=== PATIENT | male | born 1965 | race African-American/Black ===

== ENCOUNTER 2020-02-19 09:35 | Inpatient (IN) | payer BC ==
[2020-02-19 11:14] VITALS: BMI 22.6
[2020-02-19] MEDS ORDERED: ONDANSETRON *ODT* 4 MG TABLET SL PRN (12:05)
[2020-02-19] MEDS ORDERED: MAGNESIUM CITRATE 300 ML BOTTLE PO PRN (12:05)
[2020-02-19] MEDS ORDERED: chlordiazePOXIDE HCL 25 MG CAPSULE PO PRN (12:05)
[2020-02-19] MEDS ORDERED: MENTHOL/PHENOL 1 EACH UD MM PRN (12:05)
[2020-02-19] MEDS ORDERED: MAGNESIUM HYDROX 2400MG/30ML ORAL SUSPENSION 30 ML CUP PO PRN (12:05)
[2020-02-19] MEDS ORDERED: IBUPROFEN 400 MG TABLET (FP) PO PRN (12:05)
[2020-02-19] MEDS ORDERED: BISMUTH SUBSALICYLATE 262 MG/15 ML BTL PO PRN (12:05)
[2020-02-19] MEDS ORDERED: MAG HYDROX/AL HYDROX/SIMETH 30 ML UNIT-DOSE CUP PO PRN (12:05)
[2020-02-19] MEDS ORDERED: NICOTINE POLACRILEX 2 MG GUM BUC PRN (12:05)
[2020-02-19] MEDS ORDERED: ACETAMINOPHEN 325 MG TABLET (FP) PO PRN ×2 (12:05)
[2020-02-19] MEDS ORDERED: METHOCARBAMOL 500 MG TABLET PO PRN (12:05)
[2020-02-19] MEDS: PRENATAL VITAMINS W/ FOLIC ACID TABLET (FP) PO SCH (13:11)
[2020-02-19] MEDS: chlordiazePOXIDE HCL 25 MG CAPSULE PO SCH ×3 (13:11→22:14)
[2020-02-19] MEDS: hydrOXYzine PAMOATE 25 MG CAPSULE (FP) PO SCH ×3 (13:13→23:35)
[2020-02-19 17:09] LABS: HEMATOCRIT 37.4 % (35.4-49); HEMOGLOBIN 12.5 GM/dL (11.7-16.9); MCH 32.9 pg (25.7-33.7); MCHC 33.4 g/dl (32.0-35.9); MEAN CELL VOLUME 98.4 fl (80-96); MEAN PLT VOLUME 8.6 fl (7.5-11.1); PLATELET COUNT 260 K/MM3 (134-434); RDW 14.1 % (11.9-15.9); WHITE BLOOD COUNT 6.8 K/mm3 (4.0-10.0)
[2020-02-19 17:15] LABS: ALBUMIN 3.6 g/dl (3.4-5.0); CALCIUM 8.9 mg/dL (8.5-10.1)
[2020-02-19 17:16] LABS: BLOOD UREA NITROGEN 19.2 mg/dL (7-18)
[2020-02-19 17:20] LABS: BILIRUBIN,TOTAL 0.3 mg/dL (0.2-1)
[2020-02-19] MEDS ORDERED: MASKS NR ONE (18:25)
[2020-02-19] MEDS ORDERED: THIAMINE HCL 100 MG TABLET (FP) PO SCH (22:00)
[2020-02-19] MEDS ORDERED: MELATONIN 5 MG TABLETS PO SCH (22:00)
[2020-02-20] MEDS: chlordiazePOXIDE HCL 25 MG CAPSULE PO SCH ×2 (05:53→10:55)
[2020-02-20] MEDS: hydrOXYzine PAMOATE 25 MG CAPSULE (FP) PO SCH ×3 (05:53→14:58)
[2020-02-20] MEDS: PRENATAL VITAMINS W/ FOLIC ACID TABLET (FP) PO SCH (10:57)
[2020-02-20] MEDS ORDERED: PANTOPRAZOLE 40 MG TABLET PO SCH (13:15)
[2020-02-20 15:23] VITALS: BP 138/76; PULSE 83; TEMP 96.1
[2020-02-21] MEDS ORDERED: chlordiazePOXIDE HCL 25 MG CAPSULE PO SCH (05:00)
[2020-02-22] MEDS ORDERED: chlordiazePOXIDE HCL 10 MG CAPSULE PO PRN
[2020-02-22] MEDS ORDERED: chlordiazePOXIDE HCL 10 MG CAPSULE PO SCH (05:00)
[2020-02-23] MEDS ORDERED: chlordiazePOXIDE HCL 10 MG CAPSULE PO SCH (05:00)
[2020-02-24] MEDS ORDERED: chlordiazePOXIDE HCL 10 MG CAPSULE PO ONE (05:00)
== END 2020-02-20 17:15 | disposition left against medical advice (07) | DRG 770 ==
LOC: YASAS 09:35 → Y3N 11:48
PROVIDERS: ADMIT Allergy & Immunology; ATTEND Allergy & Immunology
PROC: HZ2ZZZZ Detoxification Services for Substance Abuse Treatment (ICD-10-PCS; principal; 2020-02-19)
DX: F10.230 Alcohol dependence with withdrawal, uncomplicated (principal); F14.20 Cocaine dependence, uncomplicated; F17.210 Nicotine dependence, cigarettes, uncomplicated; F32.9 Major depressive disorder, single episode, unspecified; I10 Essential (primary) hypertension; E11.9 Type 2 diabetes mellitus without complications; K21.9 Gastro-esophageal reflux disease without esophagitis; R01.1 Cardiac murmur, unspecified; Z88.5 Allergy status to narcotic agent; Z91.013 Allergy to seafood
CPT/HCPCS: 36415; 80053; 85027; 86780; 93005; 93010; C9803; U0003

== ENCOUNTER 2020-05-03 15:21 | Inpatient (IN) | payer BC ==
[2020-05-03 18:58] VITALS: BMI 24.6
[2020-05-03] MEDS ORDERED: MAG HYDROX/AL HYDROX/SIMETH 30 ML UNIT-DOSE CUP PO PRN (20:15)
[2020-05-03] MEDS ORDERED: MAGNESIUM CITRATE 300 ML BOTTLE PO PRN (20:15)
[2020-05-03] MEDS ORDERED: IBUPROFEN 400 MG TABLET (FP) PO PRN (20:15)
[2020-05-03] MEDS ORDERED: hydrOXYzine PAMOATE 25 MG CAPSULE (FP) PO PRN (20:15)
[2020-05-03] MEDS ORDERED: ACETAMINOPHEN 325 MG TABLET (FP) PO PRN (20:15)
[2020-05-03] MEDS ORDERED: P-EPHED 60MG/TRIPROLIDI 2.5MG TABLET PO PRN (20:15)
[2020-05-03] MEDS ORDERED: MAGNESIUM HYDROX 2400MG/30ML ORAL SUSPENSION 30 ML CUP PO PRN (20:15)
[2020-05-03] MEDS ORDERED: guaiFENesin 200 MG/10 ML 10 ML UNIT-DOSE CUPS PO PRN (20:15)
[2020-05-03] MEDS ORDERED: NICOTINE POLACRILEX 2 MG GUM BC PRN (20:15)
[2020-05-03] MEDS ORDERED: LOPERAMIDE HCL 2 MG CAPSULE PO PRN (20:15)
[2020-05-03] MEDS ORDERED: cloNIDine HCL 0.1 MG TABLET PO PRN (20:17)
[2020-05-03] MEDS: MELATONIN 5 MG TABLETS PO SCH (23:53)
[2020-05-03] MEDS: THIAMINE HCL 100 MG TABLET (FP) PO SCH (23:53)
[2020-05-04] MEDS: NICOTINE 14 MG/24 HOURS TOPICAL PATCH TD SCH (09:49)
[2020-05-04] MEDS: PRENATAL VITAMINS W/ FOLIC ACID TABLET (FP) PO SCH (09:49)
[2020-05-04 12:03] LABS: HEMATOCRIT 38.3 % (35.4-49); HEMOGLOBIN 12.9 GM/dL (11.7-16.9); MCH 32.3 pg (25.7-33.7); MCHC 33.7 g/dl (32.0-35.9); MEAN CELL VOLUME 95.9 fl (80-96); MEAN PLT VOLUME 8.6 fl (7.5-11.1); PLATELET COUNT 271 K/MM3 (134-434); RBC 3.99 M/mm3 (4.00-5.60); RDW 13.8 % (11.9-15.9); WHITE BLOOD COUNT 6.3 K/mm3 (4.0-10.0)
[2020-05-04 12:16] LABS: BLOOD UREA NITROGEN 15.3 mg/dL (7-18); CALCIUM 9.5 mg/dL (8.5-10.1)
[2020-05-04 12:17] LABS: ALBUMIN 3.3 g/dl (3.4-5.0)
[2020-05-04 12:20] LABS: CREATININE 0.8 mg/dL (0.55-1.3)
[2020-05-04 12:21] LABS: BILIRUBIN,TOTAL 0.3 mg/dL (0.2-1); TOT PROT 6.5 g/dl (6.4-8.2)
[2020-05-04] MEDS ORDERED: MASKS NR ONE (17:25)
[2020-05-04] MEDS: MELATONIN 5 MG TABLETS PO SCH (21:52)
[2020-05-04] MEDS: THIAMINE HCL 100 MG TABLET (FP) PO SCH (21:52)
[2020-05-05] MEDS: PRENATAL VITAMINS W/ FOLIC ACID TABLET (FP) PO SCH (10:03)
[2020-05-05] MEDS: NICOTINE 14 MG/24 HOURS TOPICAL PATCH TD SCH (10:04)
[2020-05-05] MEDS: THIAMINE HCL 100 MG TABLET (FP) PO SCH (21:11)
[2020-05-05] MEDS: MELATONIN 5 MG TABLETS PO SCH (21:11)
[2020-05-06] MEDS ORDERED: COLLOIDAL OATMEAL 1 BAR EACH TP PRN (08:39)
[2020-05-06] MEDS ORDERED: AMMONIUM LACTATE 12% LOTION 225 GM BOTTLE TP PRN (08:40)
[2020-05-06] MEDS: PRENATAL VITAMINS W/ FOLIC ACID TABLET (FP) PO SCH (09:44)
[2020-05-06] MEDS: NICOTINE 14 MG/24 HOURS TOPICAL PATCH TD SCH (10:36)
[2020-05-06 12:13] LABS: URINE APPEARANCE CLEAR; URINE BILIRUBIN NEGATIVE (NEGATIVE); URINE COLOR YELLOW; URINE GLUCOSE (UA) NEGATIVE (NEGATIVE); URINE KETONE NEGATIVE (NEGATIVE); URINE LEUK ESTERASE NEGATIVE (NEGATIVE); URINE NITRITE NEGATIVE (NEGATIVE); URINE PROTEIN NEGATIVE (NEGATIVE); URINE UROBILINOGEN 0.2 mg/dL (0.2-1.0)
[2020-05-06] MEDS: THIAMINE HCL 100 MG TABLET (FP) PO SCH (22:45)
[2020-05-06] MEDS: MELATONIN 5 MG TABLETS PO SCH (22:45)
[2020-05-07] MEDS: PRENATAL VITAMINS W/ FOLIC ACID TABLET (FP) PO SCH (10:02)
[2020-05-07] MEDS: NICOTINE 14 MG/24 HOURS TOPICAL PATCH TD SCH (10:02)
[2020-05-07] MEDS: THIAMINE HCL 100 MG TABLET (FP) PO SCH (21:44)
[2020-05-07] MEDS: MELATONIN 5 MG TABLETS PO SCH (21:44)
[2020-05-08] MEDS: PRENATAL VITAMINS W/ FOLIC ACID TABLET (FP) PO SCH (09:37)
[2020-05-08] MEDS: NICOTINE 14 MG/24 HOURS TOPICAL PATCH TD SCH (09:37)
[2020-05-08] MEDS: MELATONIN 5 MG TABLETS PO SCH (21:57)
[2020-05-08] MEDS: THIAMINE HCL 100 MG TABLET (FP) PO SCH (21:57)
[2020-05-09] MEDS: PRENATAL VITAMINS W/ FOLIC ACID TABLET (FP) PO SCH (09:35)
[2020-05-09] MEDS: NICOTINE 14 MG/24 HOURS TOPICAL PATCH TD SCH (09:35)
[2020-05-09] MEDS: MELATONIN 5 MG TABLETS PO SCH (21:47)
[2020-05-09] MEDS: THIAMINE HCL 100 MG TABLET (FP) PO SCH (21:47)
[2020-05-10] MEDS: PRENATAL VITAMINS W/ FOLIC ACID TABLET (FP) PO SCH (09:59)
[2020-05-10] MEDS: NICOTINE 14 MG/24 HOURS TOPICAL PATCH TD SCH (09:59)
[2020-05-10] MEDS: MELATONIN 5 MG TABLETS PO SCH (23:02)
[2020-05-10] MEDS: THIAMINE HCL 100 MG TABLET (FP) PO SCH (23:03)
[2020-05-11] MEDS: NICOTINE 14 MG/24 HOURS TOPICAL PATCH TD SCH (10:14)
[2020-05-11] MEDS: PRENATAL VITAMINS W/ FOLIC ACID TABLET (FP) PO SCH (10:14)
[2020-05-11] MEDS: MELATONIN 5 MG TABLETS PO SCH (21:44)
[2020-05-11] MEDS: THIAMINE HCL 100 MG TABLET (FP) PO SCH (21:44)
[2020-05-12] MEDS: NICOTINE 14 MG/24 HOURS TOPICAL PATCH TD SCH (09:52)
[2020-05-12] MEDS: PRENATAL VITAMINS W/ FOLIC ACID TABLET (FP) PO SCH (09:52)
[2020-05-12] MEDS: MELATONIN 5 MG TABLETS PO SCH (21:54)
[2020-05-12] MEDS: THIAMINE HCL 100 MG TABLET (FP) PO SCH (21:54)
[2020-05-13] MEDS: PRENATAL VITAMINS W/ FOLIC ACID TABLET (FP) PO SCH (09:37)
[2020-05-13] MEDS: NICOTINE 14 MG/24 HOURS TOPICAL PATCH TD SCH (10:15)
[2020-05-13] MEDS: THIAMINE HCL 100 MG TABLET (FP) PO SCH (21:37)
[2020-05-13] MEDS: MELATONIN 5 MG TABLETS PO SCH (21:37)
[2020-05-14] MEDS: PRENATAL VITAMINS W/ FOLIC ACID TABLET (FP) PO SCH (09:41)
[2020-05-14] MEDS: NICOTINE 14 MG/24 HOURS TOPICAL PATCH TD SCH (09:42)
[2020-05-14] MEDS: THIAMINE HCL 100 MG TABLET (FP) PO SCH (21:43)
[2020-05-14] MEDS: MELATONIN 5 MG TABLETS PO SCH (21:43)
[2020-05-15] MEDS: PRENATAL VITAMINS W/ FOLIC ACID TABLET (FP) PO SCH (10:03)
[2020-05-15] MEDS: NICOTINE 14 MG/24 HOURS TOPICAL PATCH TD SCH (10:03)
[2020-05-15] MEDS: THIAMINE HCL 100 MG TABLET (FP) PO SCH (21:36)
[2020-05-15] MEDS: MELATONIN 5 MG TABLETS PO SCH (21:36)
[2020-05-16] MEDS: PRENATAL VITAMINS W/ FOLIC ACID TABLET (FP) PO SCH (09:34)
[2020-05-16] MEDS: NICOTINE 14 MG/24 HOURS TOPICAL PATCH TD SCH (09:34)
[2020-05-16] MEDS: THIAMINE HCL 100 MG TABLET (FP) PO SCH (22:17)
[2020-05-16] MEDS: MELATONIN 5 MG TABLETS PO SCH (22:17)
[2020-05-17 07:34] VITALS: BP 139/97; PULSE 49; TEMP 97.2
[2020-05-17] MEDS: PRENATAL VITAMINS W/ FOLIC ACID TABLET (FP) PO SCH (09:49)
[2020-05-17] MEDS: NICOTINE 14 MG/24 HOURS TOPICAL PATCH TD SCH (09:49)
== END 2020-05-17 11:47 | disposition home or self-care (01) | DRG 772 ==
LOC: YASAS 15:21 → Y3W 23:08
PROVIDERS: ADMIT Allergy & Immunology; ATTEND Allergy & Immunology
PROC: HZ42ZZZ Group Counseling for Substance Abuse Treatment, Cognitive-Behavioral (ICD-10-PCS; principal; 2020-05-03)
DX: F10.20 Alcohol dependence, uncomplicated (principal); F14.20 Cocaine dependence, uncomplicated; F17.210 Nicotine dependence, cigarettes, uncomplicated; I10 Essential (primary) hypertension; E11.9 Type 2 diabetes mellitus without complications; L30.9 Dermatitis, unspecified; M16.11 Unilateral primary osteoarthritis, right hip; Z88.5 Allergy status to narcotic agent; Z91.013 Allergy to seafood; Z56.0 Unemployment, unspecified; Z59.0 Homelessness
CPT/HCPCS: 36415; 73502-TC-RT-FY; 80053; 81003; 85027; 86780; C9803; U0003

== ENCOUNTER 2021-01-21 12:36 | Inpatient (IN) | payer BC ==
[2021-01-21] MEDS ORDERED: MAGNESIUM HYDROX 2400MG/30ML ORAL SUSPENSION 30 ML CUP PO PRN (13:30)
[2021-01-21] MEDS ORDERED: BISMUTH SUBSALICYLATE 524 MG/30 ML PO PRN (13:30)
[2021-01-21] MEDS ORDERED: MAG HYDROX/AL HYDROX/SIMETH 30 ML UNIT-DOSE CUP PO PRN (13:30)
[2021-01-21] MEDS ORDERED: ONDANSETRON *ODT* 4 MG TABLET SL PRN (13:30)
[2021-01-21] MEDS ORDERED: ACETAMINOPHEN 325 MG TABLET (FP) PO PRN ×2 (13:30)
[2021-01-21] MEDS ORDERED: IBUPROFEN 400 MG TABLET (FP) PO PRN (13:30)
[2021-01-21] MEDS ORDERED: MENTHOL/PHENOL 1 EACH UD MM PRN (13:30)
[2021-01-21] MEDS ORDERED: NICOTINE 10 MG CARTRIDGE (INHALER) IH PRN (13:30)
[2021-01-21] MEDS ORDERED: MAGNESIUM CITRATE 300 ML BOTTLE PO PRN (13:30)
[2021-01-21 13:52] VITALS: BMI 21.9
[2021-01-21] MEDS: hydrOXYzine PAMOATE 25 MG CAPSULE (FP) PO SCH ×3 (15:56→22:36)
[2021-01-21] MEDS: PRENATAL VITAMINS W/ FOLIC ACID TABLET (FP) PO SCH (15:58)
[2021-01-21] MEDS: MELATONIN 5 MG TABLETS PO SCH (22:36)
[2021-01-21] MEDS: THIAMINE HCL 100 MG TABLET (FP) PO SCH (22:36)
[2021-01-22] MEDS: hydrOXYzine PAMOATE 25 MG CAPSULE (FP) PO SCH ×5 (07:09→22:37)
[2021-01-22] MEDS ORDERED: LORazepam 0.5 MG TABLET PO PRN (09:51)
[2021-01-22] MEDS: LORazepam 1 MG TABLET PO SCH ×3 (10:57→22:37)
[2021-01-22] MEDS: PRENATAL VITAMINS W/ FOLIC ACID TABLET (FP) PO SCH (10:57)
[2021-01-22 13:14] LABS: HEMATOCRIT 36.7 % (35.4-49); HEMOGLOBIN 12.5 GM/dL (11.7-16.9); MCH 32.9 pg (25.7-33.7); MEAN CELL VOLUME 96.6 fl (80-96); MEAN PLT VOLUME 7.8 fl (7.5-11.1); PLATELET COUNT 288 10^3/uL (134-434); RDW 14.7 % (11.9-15.9); WHITE BLOOD COUNT 4.9 K/mm3 (4.0-10.0)
[2021-01-22 13:42] LABS: ALBUMIN 3.1 g/dl (3.4-5.0)
[2021-01-22 13:43] LABS: BLOOD UREA NITROGEN 11.2 mg/dL (7-18)
[2021-01-22 13:46] LABS: CREATININE 0.8 mg/dL (0.55-1.3)
[2021-01-22 13:47] LABS: BILIRUBIN,TOTAL 0.4 mg/dL (0.2-1); TOT PROT 6.3 g/dl (6.4-8.2)
[2021-01-22 13:50] LABS: CALCIUM 8.5 mg/dL (8.5-10.1)
[2021-01-22] MEDS: METHOCARBAMOL 500 MG TABLET PO PRN (22:37)
[2021-01-22] MEDS: THIAMINE HCL 100 MG TABLET (FP) PO SCH (22:37)
[2021-01-22] MEDS: MELATONIN 5 MG TABLETS PO SCH (22:39)
[2021-01-23] MEDS ORDERED: LORazepam 0.5 MG TABLET PO PRN
[2021-01-23] MEDS: hydrOXYzine PAMOATE 25 MG CAPSULE (FP) PO SCH ×5 (05:21→22:46)
[2021-01-23] MEDS: LORazepam 0.5 MG TABLET PO SCH ×4 (05:21→22:46)
[2021-01-23] MEDS: PRENATAL VITAMINS W/ FOLIC ACID TABLET (FP) PO SCH (10:31)
[2021-01-23] MEDS: THIAMINE HCL 100 MG TABLET (FP) PO SCH (22:46)
[2021-01-23] MEDS: MELATONIN 5 MG TABLETS PO SCH (23:17)
[2021-01-24] MEDS ORDERED: LORazepam 0.5 MG TABLET PO ONE (05:00)
[2021-01-24] MEDS: hydrOXYzine PAMOATE 25 MG CAPSULE (FP) PO SCH ×5 (06:52→22:56)
[2021-01-24] MEDS: PRENATAL VITAMINS W/ FOLIC ACID TABLET (FP) PO SCH (10:14)
[2021-01-24] MEDS: LORazepam 0.5 MG TABLET PO SCH ×2 (10:15→22:55)
[2021-01-24] MEDS: METHOCARBAMOL 500 MG TABLET PO PRN (18:34)
[2021-01-24] MEDS: MELATONIN 5 MG TABLETS PO SCH (22:56)
[2021-01-24] MEDS: THIAMINE HCL 100 MG TABLET (FP) PO SCH (22:56)
[2021-01-25] MEDS ORDERED: LORazepam 0.5 MG TABLET PO ONE (06:00)
[2021-01-25] MEDS: hydrOXYzine PAMOATE 25 MG CAPSULE (FP) PO SCH (06:41)
[2021-01-25 09:39] VITALS: BP 151/79; PULSE 75; TEMP 98.6
== END 2021-01-25 12:46 | disposition home or self-care (01) | DRG 774 ==
LOC: YASAS 12:36 → Y3N 14:25
PROVIDERS: ADMIT Allergy & Immunology; ATTEND Allergy & Immunology
PROC: HZ2ZZZZ Detoxification Services for Substance Abuse Treatment (ICD-10-PCS; principal; 2021-01-21)
DX: F10.230 Alcohol dependence with withdrawal, uncomplicated (principal); F14.20 Cocaine dependence, uncomplicated; F17.210 Nicotine dependence, cigarettes, uncomplicated; I10 Essential (primary) hypertension; E78.5 Hyperlipidemia, unspecified; K21.9 Gastro-esophageal reflux disease without esophagitis; E11.65 Type 2 diabetes mellitus with hyperglycemia; Z88.6 Allergy status to analgesic agent; Z91.013 Allergy to seafood; Z59.00 Homelessness unspecified
CPT/HCPCS: 36415; 80053; 82962; 83036; 85027; 86780; C9803; U0003; U0005

== ENCOUNTER 2021-04-07 14:25 | Inpatient (IN) | payer BC ==
[2021-04-07] MEDS ORDERED: ONDANSETRON *ODT* 4 MG TABLET SL PRN (15:32)
[2021-04-07] MEDS ORDERED: MENTHOL/PHENOL 1 EACH UD MM PRN (15:32)
[2021-04-07] MEDS ORDERED: chlordiazePOXIDE HCL 25 MG CAPSULE PO PRN (15:32)
[2021-04-07] MEDS ORDERED: ACETAMINOPHEN 325 MG TABLET (FP) PO PRN ×2 (15:32)
[2021-04-07] MEDS ORDERED: NICOTINE 10 MG CARTRIDGE (INHALER) IH PRN (15:32)
[2021-04-07] MEDS ORDERED: MAGNESIUM CITRATE 300 ML BOTTLE PO PRN (15:32)
[2021-04-07] MEDS ORDERED: IBUPROFEN 400 MG TABLET (FP) PO PRN (15:32)
[2021-04-07] MEDS ORDERED: MAG HYDROX/AL HYDROX/SIMETH 30 ML UNIT-DOSE CUP PO PRN (15:32)
[2021-04-07] MEDS ORDERED: BISMUTH SUBSALICYLATE 524 MG/30 ML PO PRN (15:32)
[2021-04-07] MEDS ORDERED: MAGNESIUM HYDROX 2400MG/30ML ORAL SUSPENSION 30 ML CUP PO PRN (15:32)
[2021-04-07] MEDS ORDERED: METHOCARBAMOL 500 MG TABLET PO PRN (15:32)
[2021-04-07] MEDS ORDERED: LOPERAMIDE HCL 2 MG CAPSULE PO PRN (15:32)
[2021-04-07 15:48] VITALS: BMI 26.6
[2021-04-08] MEDS: chlordiazePOXIDE HCL 25 MG CAPSULE PO SCH ×6 (00:46→23:12)
[2021-04-08] MEDS: NICOTINE 14 MG/24 HOURS TOPICAL PATCH TD SCH ×2 (00:47→11:11)
[2021-04-08] MEDS: PRENATAL VITAMINS W/ FOLIC ACID TABLET (FP) PO SCH ×2 (00:47→10:29)
[2021-04-08] MEDS: MELATONIN 5 MG TABLETS PO SCH ×2 (01:56→23:12)
[2021-04-08] MEDS: hydrOXYzine PAMOATE 25 MG CAPSULE (FP) PO SCH ×6 (01:57→23:12)
[2021-04-08] MEDS: THIAMINE HCL 100 MG TABLET (FP) PO SCH ×2 (01:57→23:12)
[2021-04-08 12:31] LABS: HEMATOCRIT 35.1 % (35.4-49); HEMOGLOBIN 11.6 GM/dL (11.7-16.9); MCH 32.2 pg (25.7-33.7); MEAN CELL VOLUME 97.6 fl (80-96); MEAN PLT VOLUME 8.3 fl (7.5-11.1); PLATELET COUNT 243 10^3/uL (134-434); RDW 14.8 % (11.9-15.9); WHITE BLOOD COUNT 5.2 K/mm3 (4.0-10.0)
[2021-04-08 12:44] LABS: ALBUMIN 3.1 g/dl (3.4-5.0); BLOOD UREA NITROGEN 20.2 mg/dL (7-18); CALCIUM 7.8 mg/dL (8.5-10.1)
[2021-04-08 12:49] LABS: BILIRUBIN,TOTAL 0.4 mg/dL (0.2-1)
[2021-04-08 13:37] LABS: HIV INTERPRETATION NEGATIVE (NEGATIVE)
[2021-04-09] MEDS: hydrOXYzine PAMOATE 25 MG CAPSULE (FP) PO SCH ×5 (06:01→23:12)
[2021-04-09] MEDS: chlordiazePOXIDE HCL 25 MG CAPSULE PO SCH ×4 (06:01→23:12)
[2021-04-09] MEDS: PRENATAL VITAMINS W/ FOLIC ACID TABLET (FP) PO SCH (10:37)
[2021-04-09] MEDS: NICOTINE 14 MG/24 HOURS TOPICAL PATCH TD SCH (10:39)
[2021-04-09 16:11] LABS: SARS-CoV-2 NAA Not Detected (Not Detected)
[2021-04-09] MEDS: MELATONIN 5 MG TABLETS PO SCH (23:12)
[2021-04-09] MEDS: THIAMINE HCL 100 MG TABLET (FP) PO SCH (23:12)
[2021-04-10] MEDS ORDERED: chlordiazePOXIDE HCL 10 MG CAPSULE PO PRN
[2021-04-10] MEDS: chlordiazePOXIDE HCL 10 MG CAPSULE PO SCH ×2 (06:49→10:50)
[2021-04-10] MEDS: hydrOXYzine PAMOATE 25 MG CAPSULE (FP) PO SCH ×3 (06:49→13:58)
[2021-04-10] MEDS: PRENATAL VITAMINS W/ FOLIC ACID TABLET (FP) PO SCH (10:49)
[2021-04-10] MEDS: NICOTINE 14 MG/24 HOURS TOPICAL PATCH TD SCH (10:50)
[2021-04-10 13:08] VITALS: BP 126/78; PULSE 91; TEMP 98.6
[2021-04-11] MEDS ORDERED: chlordiazePOXIDE HCL 10 MG CAPSULE PO SCH (05:00)
[2021-04-12] MEDS ORDERED: chlordiazePOXIDE HCL 10 MG CAPSULE PO ONE (05:00)
== END 2021-04-10 16:27 | disposition left against medical advice (07) | DRG 770 ==
LOC: YASAS 14:25 → Y3N 22:42
PROVIDERS: ADMIT Allergy & Immunology; ATTEND Allergy & Immunology
PROC: HZ2ZZZZ Detoxification Services for Substance Abuse Treatment (ICD-10-PCS; principal; 2021-04-07)
DX: F10.230 Alcohol dependence with withdrawal, uncomplicated (principal); F14.20 Cocaine dependence, uncomplicated; F12.20 Cannabis dependence, uncomplicated; F17.210 Nicotine dependence, cigarettes, uncomplicated; I10 Essential (primary) hypertension; E78.5 Hyperlipidemia, unspecified; E11.9 Type 2 diabetes mellitus without complications; L30.9 Dermatitis, unspecified; Z88.5 Allergy status to narcotic agent; Z91.013 Allergy to seafood; Z59.00 Homelessness unspecified
CPT/HCPCS: 36415; 80053; 85027; 86780; 87389; 87811; C9803; U0003; U0005

== ENCOUNTER 2021-08-08 11:48 | Inpatient (IN) | payer BC ==
[2021-08-08 12:13] VITALS: BMI 23.3
[2021-08-08] MEDS ORDERED: BISMUTH SUBSALICYLATE 262 MG/15 ML BTL PO PRN (12:13)
[2021-08-08] MEDS ORDERED: BENZOCAINE/MENTHOL (CHLORASEPTIC ) LOZENGE MM PRN (12:13)
[2021-08-08] MEDS ORDERED: MAGNESIUM CITRATE 300 ML BOTTLE PO PRN (12:13)
[2021-08-08] MEDS ORDERED: chlordiazePOXIDE HCL 25 MG CAPSULE PO PRN (12:13)
[2021-08-08] MEDS ORDERED: NICOTINE 10 MG CARTRIDGE (INHALER) IH PRN (12:13)
[2021-08-08] MEDS ORDERED: ONDANSETRON *ODT* 4 MG TABLET SL PRN (12:13)
[2021-08-08] MEDS ORDERED: DICYCLOMINE HCL 10 MG CAPSULE PO PRN (12:13)
[2021-08-08] MEDS ORDERED: ACETAMINOPHEN 325 MG TABLET (FP) PO PRN ×2 (12:13)
[2021-08-08] MEDS ORDERED: MAGNESIUM HYDROX 2400MG/30ML ORAL SUSPENSION 30 ML CUP PO PRN (12:13)
[2021-08-08] MEDS ORDERED: IBUPROFEN 600 MG TABLET (FP) PO PRN (12:13)
[2021-08-08] MEDS ORDERED: LOPERAMIDE HCL 2 MG CAPSULE PO PRN (12:13)
[2021-08-08] MEDS ORDERED: IBUPROFEN 400 MG TABLET (FP) PO PRN (12:13)
[2021-08-08] MEDS ORDERED: METHOCARBAMOL 500 MG TABLET PO PRN (12:13)
[2021-08-08] MEDS ORDERED: MAG HYDROX/AL HYDROX/SIMETH 30 ML UNIT-DOSE CUP PO PRN (12:13)
[2021-08-08 15:02] LABS: HEMATOCRIT 38.2 % (35.4-49); HEMOGLOBIN 13.1 GM/dL (11.7-16.9); MCH 32.8 pg (25.7-33.7); MCHC 34.4 g/dl (32.0-35.9); MEAN CELL VOLUME 95.3 fl (80-96); PLATELET COUNT 259 10^3/uL (134-434); RBC 4.01 M/mm3 (4.00-5.60); RDW 15.1 % (11.9-15.9); WHITE BLOOD COUNT 4.6 K/mm3 (4.0-10.0)
[2021-08-08 15:18] LABS: ALBUMIN 3.5 g/dl (3.4-5.0); CALCIUM 9.2 mg/dL (8.5-10.1)
[2021-08-08 15:19] LABS: BLOOD UREA NITROGEN 15.3 mg/dL (7-18)
[2021-08-08 15:21] LABS: CREATININE 0.9 mg/dL (0.55-1.3)
[2021-08-08 15:23] LABS: BILIRUBIN,TOTAL 0.3 mg/dL (0.2-1); TOT PROT 7.2 g/dl (6.4-8.2)
[2021-08-08] MEDS: PRENATAL VITAMINS W/ FOLIC ACID TABLET (FP) PO SCH (15:23)
[2021-08-08] MEDS: hydrOXYzine PAMOATE 25 MG CAPSULE (FP) PO SCH ×3 (15:23→22:15)
[2021-08-08] MEDS: chlordiazePOXIDE HCL 25 MG CAPSULE PO SCH ×2 (17:13→22:15)
[2021-08-08] MEDS: INSULIN SLIDING SCALE (NOVOLOG) 1 VIAL SQ SCH (17:15)
[2021-08-08] MEDS ORDERED: MELATONIN 5 MG TABLETS PO SCH (22:00)
[2021-08-08] MEDS ORDERED: THIAMINE HCL 100 MG TABLET (FP) PO SCH (22:00)
[2021-08-09] MEDS: hydrOXYzine PAMOATE 25 MG CAPSULE (FP) PO SCH ×3 (05:59→14:56)
[2021-08-09] MEDS: chlordiazePOXIDE HCL 25 MG CAPSULE PO SCH ×2 (05:59→10:25)
[2021-08-09] MEDS: INSULIN SLIDING SCALE (NOVOLOG) 1 VIAL SQ SCH ×2 (06:48→11:43)
[2021-08-09] MEDS: PRENATAL VITAMINS W/ FOLIC ACID TABLET (FP) PO SCH (10:25)
[2021-08-09 12:57] VITALS: BP 136/94; PULSE 96; TEMP 97.7
[2021-08-10] MEDS ORDERED: chlordiazePOXIDE HCL 25 MG CAPSULE PO SCH (05:00)
[2021-08-11] MEDS ORDERED: chlordiazePOXIDE HCL 10 MG CAPSULE PO PRN
[2021-08-11] MEDS ORDERED: chlordiazePOXIDE HCL 10 MG CAPSULE PO SCH (05:00)
[2021-08-12] MEDS ORDERED: chlordiazePOXIDE HCL 10 MG CAPSULE PO SCH (05:00)
[2021-08-13] MEDS ORDERED: chlordiazePOXIDE HCL 10 MG CAPSULE PO ONE (05:00)
== END 2021-08-09 16:22 | disposition left against medical advice (07) | DRG 770 ==
LOC: YASAS 11:48 → Y6N 14:04
PROVIDERS: ADMIT Allergy & Immunology; ATTEND Surgery
PROC: HZ2ZZZZ Detoxification Services for Substance Abuse Treatment (ICD-10-PCS; principal; 2021-08-08)
DX: F10.230 Alcohol dependence with withdrawal, uncomplicated (principal); F14.20 Cocaine dependence, uncomplicated; F12.20 Cannabis dependence, uncomplicated; F17.213 Nicotine dependence, cigarettes, with withdrawal; I10 Essential (primary) hypertension; E11.9 Type 2 diabetes mellitus without complications; R01.1 Cardiac murmur, unspecified; M19.90 Unspecified osteoarthritis, unspecified site; E78.5 Hyperlipidemia, unspecified; K21.9 Gastro-esophageal reflux disease without esophagitis; Z28.310 Unvaccinated for COVID-19; Z79.4 Long term (current) use of insulin; Z91.013 Allergy to seafood; Z88.6 Allergy status to analgesic agent; Z56.0 Unemployment, unspecified; Z59.00 Homelessness unspecified
CPT/HCPCS: 36415; 80053; 82962; 85027; 86780; C9803-CS; U0003; U0005

== ENCOUNTER 2021-12-09 16:41 | Inpatient (IN) | payer BC ==
[2021-12-09 19:48] VITALS: BMI 22.4
[2021-12-09] MEDS ORDERED: NICOTINE POLACRILEX 2 MG GUM BUC PRN (23:16)
[2021-12-09] MEDS ORDERED: hydrOXYzine PAMOATE 25 MG CAPSULE (FP) PO PRN (23:16)
[2021-12-09] MEDS ORDERED: BENZOCAINE/MENTHOL (CHLORASEPTIC ) LOZENGE MM PRN (23:16)
[2021-12-09] MEDS ORDERED: METHOCARBAMOL 500 MG TABLET PO PRN (23:16)
[2021-12-09] MEDS ORDERED: MAGNESIUM HYDROX 2400MG/30ML ORAL SUSPENSION 30 ML CUP PO PRN (23:16)
[2021-12-09] MEDS ORDERED: LOPERAMIDE HCL 2 MG CAPSULE PO PRN (23:16)
[2021-12-09] MEDS ORDERED: MAG HYDROX/AL HYDROX/SIMETH 30 ML UNIT-DOSE CUP PO PRN (23:16)
[2021-12-09] MEDS ORDERED: IBUPROFEN 600 MG TABLET (FP) PO PRN (23:16)
[2021-12-09] MEDS ORDERED: DICYCLOMINE HCL 10 MG CAPSULE PO PRN (23:16)
[2021-12-09] MEDS ORDERED: BISMUTH SUBSALICYLATE 524 MG/30 ML PO PRN (23:16)
[2021-12-09] MEDS ORDERED: ACETAMINOPHEN 325 MG TABLET (FP) PO PRN ×2 (23:16)
[2021-12-09] MEDS ORDERED: guaiFENesin 200 MG/10 ML 10 ML UNIT-DOSE CUPS PO PRN (23:16)
[2021-12-09] MEDS ORDERED: P-EPHED 60MG/TRIPROLIDI 2.5MG TABLET PO PRN (23:16)
[2021-12-09] MEDS ORDERED: MELATONIN 5 MG TABLETS PO PRN (23:16)
[2021-12-09] MEDS ORDERED: MAGNESIUM CITRATE 300 ML BOTTLE PO PRN (23:16)
[2021-12-09] MEDS ORDERED: ONDANSETRON *ODT* 4 MG TABLET SL PRN (23:16)
[2021-12-09] MEDS ORDERED: IBUPROFEN 400 MG TABLET (FP) PO PRN (23:16)
[2021-12-10] MEDS: metFORMIN HCL 500 MG TABLET (FP) PO SCH (10:39)
[2021-12-10] MEDS: PRENATAL VITAMINS W/ FOLIC ACID TABLET (FP) PO SCH (10:40)
[2021-12-10] MEDS: THIAMINE HCL 100 MG TABLET (FP) PO SCH (22:32)
[2021-12-11] MEDS: metFORMIN HCL 500 MG TABLET (FP) PO SCH (10:20)
[2021-12-11] MEDS: PRENATAL VITAMINS W/ FOLIC ACID TABLET (FP) PO SCH (10:20)
[2021-12-11 12:08] LABS: CALCIUM 9.2 mg/dL (8.5-10.1)
[2021-12-11 12:09] LABS: ALBUMIN 3.4 g/dl (3.4-5.0); BLOOD UREA NITROGEN 12.7 mg/dL (7-18)
[2021-12-11 12:10] LABS: CREATININE 0.9 mg/dL (0.55-1.3)
[2021-12-11 12:11] LABS: BILIRUBIN,TOTAL 0.2 mg/dL (0.2-1); TOT PROT 6.9 g/dl (6.4-8.2)
[2021-12-11 12:27] LABS: HEMOGLOBIN 12.6 GM/dL (11.7-16.9); MCH 31.2 pg (25.7-33.7); MEAN CELL VOLUME 94.4 fl (80-96); MEAN PLT VOLUME 8.2 fl (7.5-11.1); PLATELET COUNT 329 10^3/uL (134-434); RBC 4.03 M/mm3 (4.00-5.60); RDW 14.5 % (11.9-15.9)
[2021-12-11 12:59] LABS: HIV INTERPRETATION NEGATIVE (NEGATIVE)
[2021-12-11] MEDS: THIAMINE HCL 100 MG TABLET (FP) PO SCH (22:52)
[2021-12-12] MEDS: metFORMIN HCL 500 MG TABLET (FP) PO SCH (09:29)
[2021-12-12] MEDS: PRENATAL VITAMINS W/ FOLIC ACID TABLET (FP) PO SCH (09:30)
[2021-12-12] MEDS ORDERED: amLODIPine BESYLATE 2.5 MG TABLET (FP) PO SCH (10:00)
[2021-12-12 18:32] VITALS: BP 149/87; PULSE 65; RESP 17; TEMP 97.1
== END 2021-12-12 20:15 | disposition other institution (70) | DRG 774 ==
LOC: YASAS 16:41 → Y6N 12-10 07:19
PROVIDERS: ADMIT Allergy & Immunology; ATTEND Surgery
PROC: HZ2ZZZZ Detoxification Services for Substance Abuse Treatment (ICD-10-PCS; principal; 2021-12-10)
DX: F10.230 Alcohol dependence with withdrawal, uncomplicated (principal); F14.20 Cocaine dependence, uncomplicated; F12.20 Cannabis dependence, uncomplicated; F72 Severe intellectual disabilities; F17.210 Nicotine dependence, cigarettes, uncomplicated; I10 Essential (primary) hypertension; E11.9 Type 2 diabetes mellitus without complications; Z79.84 Long term (current) use of oral hypoglycemic drugs; M17.11 Unilateral primary osteoarthritis, right knee; L30.9 Dermatitis, unspecified; M19.09 Primary osteoarthritis, other specified site; Z28.310 Unvaccinated for COVID-19; Z28.9 Immunization not carried out for unspecified reason; Z88.5 Allergy status to narcotic agent; Z91.013 Allergy to seafood
CPT/HCPCS: 36415; 80053; 82962; 85027; 86780; 87389; C9803-CS; U0003; U0005

== ENCOUNTER 2021-12-12 20:30 | Inpatient (IN) | payer BC ==
[~2021-12-12 20:30] MED LIST: ACETAMINOPHEN 325 MG TABLET (FP) PO PRN; IBUPROFEN 400 MG TABLET (FP) PO PRN; LOPERAMIDE HCL 2 MG CAPSULE PO PRN; MAG HYDROX/AL HYDROX/SIMETH 30 ML UNIT-DOSE CUP PO PRN; MAGNESIUM CITRATE 300 ML BOTTLE PO PRN; MAGNESIUM HYDROX 2400MG/30ML ORAL SUSPENSION 30 ML CUP PO PRN; NICOTINE 10 MG CARTRIDGE (INHALER) IH PRN; NICOTINE 7 MG/24 HOURS TOPICAL PATCH TD PRN; NICOTINE POLACRILEX 2 MG GUM BC PRN; guaiFENesin 200 MG/10 ML 10 ML UNIT-DOSE CUPS PO PRN; hydrOXYzine PAMOATE 25 MG CAPSULE (FP) PO PRN
[2021-12-12] MEDS ORDERED: THIAMINE HCL 100 MG TABLET (FP) PO SCH (22:00)
[2021-12-12] MEDS ORDERED: MELATONIN 5 MG TABLETS PO SCH (22:00)
[2021-12-12 23:11] VITALS: RESP 18
[2021-12-13 08:00] VITALS: BP 133/88; PULSE 56; TEMP 97.5
[2021-12-13] MEDS ORDERED: PRENATAL VITAMINS W/ FOLIC ACID TABLET (FP) PO SCH (10:00)
[2021-12-13] MEDS ORDERED: metFORMIN HCL 500 MG TABLET (FP) PO SCH (10:00)
== END 2021-12-13 09:08 | disposition left against medical advice (07) | DRG 770 ==
LOC: YASAS 20:30 → UNDOADMIN 20:31 → Y6N 20:31 → Y3W 20:31
PROVIDERS: ADMIT Allergy & Immunology; ATTEND Psychiatry & Neurology Pain Medicine
PROC: HZ42ZZZ Group Counseling for Substance Abuse Treatment, Cognitive-Behavioral (ICD-10-PCS; principal; 2021-12-12)
DX: F10.20 Alcohol dependence, uncomplicated (principal); F14.20 Cocaine dependence, uncomplicated; F12.20 Cannabis dependence, uncomplicated; F17.210 Nicotine dependence, cigarettes, uncomplicated; F32.A Depression, unspecified; I10 Essential (primary) hypertension; E11.9 Type 2 diabetes mellitus without complications; Z79.84 Long term (current) use of oral hypoglycemic drugs; M17.11 Unilateral primary osteoarthritis, right knee; L30.9 Dermatitis, unspecified; R01.1 Cardiac murmur, unspecified; Z91.013 Allergy to seafood; Z88.5 Allergy status to narcotic agent
CPT/HCPCS: 82962

== ENCOUNTER 2022-07-07 13:05 | Inpatient (IN) | payer BC ==
[2022-07-07 15:42] VITALS: BMI 20.9
[2022-07-07] MEDS ORDERED: ONDANSETRON *ODT* 4 MG TABLET SL PRN (17:35)
[2022-07-07] MEDS ORDERED: BENZONATATE 200 MG CAPSULE PO PRN (17:35)
[2022-07-07] MEDS ORDERED: guaiFENesin 600 MG TABLET.ER (FP) PO PRN (17:35)
[2022-07-07] MEDS ORDERED: POLYETHYLENE GLYCOL (HEALTHYLAX) 3350 17 GM PACKET PO PRN (17:35)
[2022-07-07] MEDS ORDERED: IBUPROFEN 400 MG TABLET (FP) PO PRN (17:35)
[2022-07-07] MEDS ORDERED: MAGNESIUM HYDROX 2400MG/30ML ORAL SUSPENSION 30 ML CUP PO PRN (17:35)
[2022-07-07] MEDS ORDERED: chlordiazePOXIDE HCL 25 MG CAPSULE PO PRN (17:35)
[2022-07-07] MEDS ORDERED: hydrOXYzine PAMOATE 25 MG CAPSULE (FP) PO PRN (17:35)
[2022-07-07] MEDS ORDERED: LOPERAMIDE HCL 2 MG CAPSULE PO PRN (17:35)
[2022-07-07] MEDS ORDERED: ACETAMINOPHEN 325 MG TABLET (FP) PO PRN (17:35)
[2022-07-07] MEDS ORDERED: NICOTINE 10 MG CARTRIDGE (INHALER) IH PRN (17:35)
[2022-07-07] MEDS ORDERED: MAG HYDROX/AL HYDROX/SIMETH 30 ML UNIT-DOSE CUP PO PRN (17:35)
[2022-07-07] MEDS ORDERED: BISMUTH SUBSALICYLATE 524 MG/30 ML PO PRN (17:35)
[2022-07-07] MEDS ORDERED: BENZOCAINE/MENTHOL (CHLORASEPTIC ) LOZENGE MM PRN (17:35)
[2022-07-07] MEDS ORDERED: NALOXONE HCL 0.4 MG/ML VIAL IM PRN (17:35)
[2022-07-07] MEDS ORDERED: IBUPROFEN 600 MG TABLET (FP) PO PRN (17:35)
[2022-07-07] MEDS ORDERED: NALOXONE HCL (KLOXXADO) 8 MG SPRAY NS PRN (17:35)
[2022-07-07] MEDS ORDERED: DICYCLOMINE HCL 10 MG CAPSULE PO PRN (17:35)
[2022-07-07] MEDS: MELATONIN 5 MG TABLETS PO SCH (22:13)
[2022-07-07] MEDS: METHOCARBAMOL 500 MG TABLET PO PRN (22:13)
[2022-07-07] MEDS: THIAMINE HCL 100 MG TABLET (FP) PO SCH (22:13)
[2022-07-07] MEDS: chlordiazePOXIDE HCL 25 MG CAPSULE PO SCH (22:14)
[2022-07-08] MEDS: chlordiazePOXIDE HCL 25 MG CAPSULE PO SCH ×4 (06:00→22:40)
[2022-07-08] MEDS: metFORMIN HCL 500 MG TABLET (FP) PO SCH ×2 (07:00→17:42)
[2022-07-08] MEDS: PRENATAL VITAMINS W/ FOLIC ACID TABLET (FP) PO SCH (10:57)
[2022-07-08] MEDS: LISINOPRIL 10 MG TABLET PO SCH (10:58)
[2022-07-08] MEDS: METHOCARBAMOL 500 MG TABLET PO PRN (10:58)
[2022-07-08 15:15] LABS: HEMOGLOBIN 11.7 GM/dL (11.7-16.9); MCH 31.3 pg (25.7-33.7); MCHC 33.4 g/dl (32.0-35.9); MEAN CELL VOLUME 93.6 fl (80-96); MEAN PLT VOLUME 7.9 fl (7.5-11.1); PLATELET COUNT 301 10^3/uL (134-434); RBC 3.73 M/mm3 (4.00-5.60); RDW 15.6 % (11.9-15.9); WHITE BLOOD COUNT 5.5 K/mm3 (4.0-10.0)
[2022-07-08 15:44] LABS: POTASSIUM 3.6 mmol/L (3.5-5.1)
[2022-07-08 15:51] LABS: CALCIUM 8.7 mg/dL (8.5-10.1)
[2022-07-08 15:52] LABS: ALBUMIN 3.1 g/dl (3.4-5.0); BLOOD UREA NITROGEN 12.8 mg/dL (7-18)
[2022-07-08 15:54] LABS: CREATININE 0.8 mg/dL (0.55-1.3)
[2022-07-08 15:56] LABS: BILIRUBIN,TOTAL 0.3 mg/dL (0.2-1); TOT PROT 6.8 g/dl (6.4-8.2)
[2022-07-08] MEDS: MELATONIN 5 MG TABLETS PO SCH (22:40)
[2022-07-08] MEDS: THIAMINE HCL 100 MG TABLET (FP) PO SCH (22:40)
[2022-07-09] MEDS: chlordiazePOXIDE HCL 25 MG CAPSULE PO SCH ×2 (06:01→10:26)
[2022-07-09] MEDS: metFORMIN HCL 500 MG TABLET (FP) PO SCH (06:26)
[2022-07-09 06:50] VITALS: RESP 16
[2022-07-09] MEDS: LISINOPRIL 10 MG TABLET PO SCH (10:26)
[2022-07-09] MEDS: PRENATAL VITAMINS W/ FOLIC ACID TABLET (FP) PO SCH (10:27)
[2022-07-09 13:05] VITALS: BP 163/98; PULSE 77; TEMP 97.7
[2022-07-10] MEDS ORDERED: chlordiazePOXIDE HCL 10 MG CAPSULE PO PRN
[2022-07-10] MEDS ORDERED: chlordiazePOXIDE HCL 10 MG CAPSULE PO SCH (05:00)
[2022-07-11] MEDS ORDERED: chlordiazePOXIDE HCL 10 MG CAPSULE PO SCH (05:00)
[2022-07-12] MEDS ORDERED: chlordiazePOXIDE HCL 10 MG CAPSULE PO ONE (05:00)
== END 2022-07-09 16:22 | disposition left against medical advice (07) | DRG 770 ==
LOC: YASAS 13:05 → Y3N 17:52
PROVIDERS: ADMIT Allergy & Immunology; ATTEND Surgery
PROC: HZ2ZZZZ Detoxification Services for Substance Abuse Treatment (ICD-10-PCS; principal; 2022-07-07)
DX: F10.230 Alcohol dependence with withdrawal, uncomplicated (principal); F12.20 Cannabis dependence, uncomplicated; F17.213 Nicotine dependence, cigarettes, with withdrawal; E11.9 Type 2 diabetes mellitus without complications; Z79.84 Long term (current) use of oral hypoglycemic drugs; Z88.5 Allergy status to narcotic agent; Z91.013 Allergy to seafood; Z28.310 Unvaccinated for COVID-19; Z28.9 Immunization not carried out for unspecified reason
CPT/HCPCS: 36415; 80053; 82962; 85027; 86780; 87811; C9803-CS; U0003; U0005

== ENCOUNTER 2022-11-23 09:29 | Inpatient (IN) | payer BC ==
[2022-11-23 09:53] VITALS: BMI 21.6
[2022-11-23] MEDS ORDERED: NALOXONE HCL (KLOXXADO) 8 MG SPRAY NS PRN (11:14)
[2022-11-23] MEDS ORDERED: LORazepam 1 MG TABLET PO PRN (11:14)
[2022-11-23] MEDS ORDERED: POLYETHYLENE GLYCOL (HEALTHYLAX) 3350 17 GM PACKET PO PRN (11:14)
[2022-11-23] MEDS ORDERED: METHOCARBAMOL 500 MG TABLET PO PRN (11:14)
[2022-11-23] MEDS ORDERED: MAGNESIUM HYDROX 2400MG/30ML ORAL SUSPENSION 30 ML CUP PO PRN (11:14)
[2022-11-23] MEDS ORDERED: DICYCLOMINE HCL 10 MG CAPSULE PO PRN (11:14)
[2022-11-23] MEDS ORDERED: BENZOCAINE/MENTHOL (CHLORASEPTIC ) LOZENGE MM PRN (11:14)
[2022-11-23] MEDS ORDERED: ACETAMINOPHEN 325 MG TABLET (FP) PO PRN (11:14)
[2022-11-23] MEDS ORDERED: BISMUTH SUBSALICYLATE 262 MG/15 ML BTL PO PRN (11:14)
[2022-11-23] MEDS ORDERED: ONDANSETRON *ODT* 4 MG TABLET SL PRN (11:14)
[2022-11-23] MEDS ORDERED: MAG HYDROX/AL HYDROX/SIMETH 30 ML UNIT-DOSE CUP PO PRN (11:14)
[2022-11-23] MEDS ORDERED: NALOXONE HCL 0.4 MG/ML VIAL IM PRN (11:14)
[2022-11-23] MEDS ORDERED: IBUPROFEN 600 MG TABLET (FP) PO PRN (11:14)
[2022-11-23] MEDS ORDERED: guaiFENesin 600 MG TABLET.ER (FP) PO PRN (11:14)
[2022-11-23] MEDS ORDERED: IBUPROFEN 400 MG TABLET (FP) PO PRN (11:14)
[2022-11-23] MEDS ORDERED: LOPERAMIDE HCL 2 MG CAPSULE PO PRN (11:14)
[2022-11-23] MEDS ORDERED: BENZONATATE 200 MG CAPSULE PO PRN (11:14)
[2022-11-23] MEDS ORDERED: hydrOXYzine PAMOATE 25 MG CAPSULE (FP) PO PRN (11:14)
[2022-11-23] MEDS ORDERED: chlordiazePOXIDE HCL 25 MG CAPSULE PO PRN (11:29)
[2022-11-23] MEDS ORDERED: NICOTINE 14 MG/24 HOURS TOPICAL PATCH TD ONE (12:26)
[2022-11-23] MEDS ORDERED: LISINOPRIL 10 MG TABLET ONE (12:26)
[2022-11-23] MEDS ORDERED: PRENATAL VITAMINS W/ FOLIC ACID TABLET (FP) PO ONE (12:27)
[2022-11-23] MEDS: NICOTINE 14 MG/24 HOURS TOPICAL PATCH TD SCH (12:35)
[2022-11-23] MEDS: PRENATAL VITAMINS W/ FOLIC ACID TABLET (FP) PO SCH (12:35)
[2022-11-23] MEDS: LISINOPRIL 10 MG TABLET PO SCH (12:35)
[2022-11-23 14:56] LABS: HEMATOCRIT 37.4 % (35.4-49); HEMOGLOBIN 12.7 GM/dL (11.7-16.9); MCH 31.3 pg (25.7-33.7); MCHC 34.1 g/dl (32.0-35.9); PLATELET COUNT 302 10^3/uL (134-434); RBC 4.06 M/mm3 (4.00-5.60); RDW 16.8 % (11.9-15.9); WHITE BLOOD COUNT 5.9 K/mm3 (4.0-10.0)
[2022-11-23 15:00] LABS: POTASSIUM 4.1 mmol/L (3.5-5.1)
[2022-11-23 15:09] LABS: ALBUMIN 3.3 g/dl (3.4-5.0); CALCIUM 8.6 mg/dL (8.5-10.1)
[2022-11-23 15:12] LABS: CREATININE 0.8 mg/dL (0.55-1.3)
[2022-11-23 15:14] LABS: BILIRUBIN,TOTAL 0.7 mg/dL (0.2-1)
[2022-11-23] MEDS ORDERED: LORazepam 2 MG TABLET PO SCH (17:00)
[2022-11-23] MEDS: metFORMIN HCL 500 MG TABLET (FP) PO SCH (17:19)
[2022-11-23] MEDS: chlordiazePOXIDE HCL 25 MG CAPSULE PO SCH ×2 (17:19→22:14)
[2022-11-23] MEDS ORDERED: THIAMINE HCL 100 MG TABLET (FP) PO SCH (22:00)
[2022-11-23] MEDS ORDERED: MELATONIN 5 MG TABLETS PO SCH (22:00)
[2022-11-24] MEDS: chlordiazePOXIDE HCL 25 MG CAPSULE PO SCH ×3 (05:55→17:39)
[2022-11-24] MEDS: metFORMIN HCL 500 MG TABLET (FP) PO SCH ×2 (06:10→17:37)
[2022-11-24] MEDS: PRENATAL VITAMINS W/ FOLIC ACID TABLET (FP) PO SCH (10:39)
[2022-11-24] MEDS: LISINOPRIL 10 MG TABLET PO SCH (10:39)
[2022-11-24] MEDS: NICOTINE 14 MG/24 HOURS TOPICAL PATCH TD SCH (10:39)
[2022-11-24] MEDS ORDERED: TOLNAFTATE 1% CREAM 15 GM TUBE TP SCH (11:30)
[2022-11-24 13:03] VITALS: RESP 16
[2022-11-24 17:44] VITALS: BP 139/97; PULSE 101; TEMP 98.2
[2022-11-24] MEDS ORDERED: LACTULOSE 20 GM/30 ML UDC (FOR ORAL USE ONLY) PO SCH (18:00)
[2022-11-25] MEDS ORDERED: LORazepam 1 MG TABLET PO SCH (05:00)
[2022-11-25] MEDS ORDERED: chlordiazePOXIDE HCL 25 MG CAPSULE PO SCH (05:00)
[2022-11-26] MEDS ORDERED: LORazepam 0.5 MG TABLET PO PRN
[2022-11-26] MEDS ORDERED: chlordiazePOXIDE HCL 10 MG CAPSULE PO PRN
[2022-11-26] MEDS ORDERED: chlordiazePOXIDE HCL 10 MG CAPSULE PO SCH (05:00)
[2022-11-26] MEDS ORDERED: LORazepam 0.5 MG TABLET PO SCH (05:00)
[2022-11-27] MEDS ORDERED: LORazepam 0.5 MG TABLET PO ONE (05:00)
[2022-11-27] MEDS ORDERED: chlordiazePOXIDE HCL 10 MG CAPSULE PO SCH (05:00)
[2022-11-28] MEDS ORDERED: chlordiazePOXIDE HCL 10 MG CAPSULE PO ONE (05:00)
== END 2022-11-24 18:33 | disposition left against medical advice (07) | DRG 770 ==
LOC: YASAS 09:29 → Y6N 12:07
PROVIDERS: ADMIT Allergy & Immunology; ATTEND Surgery
PROC: HZ2ZZZZ Detoxification Services for Substance Abuse Treatment (ICD-10-PCS; principal; 2022-11-23)
DX: F10.230 Alcohol dependence with withdrawal, uncomplicated (principal); F14.20 Cocaine dependence, uncomplicated; F12.20 Cannabis dependence, uncomplicated; F17.210 Nicotine dependence, cigarettes, uncomplicated; F19.282 Other psychoactive substance dependence with psychoactive substance-induced sleep disorder; F19.24 Other psychoactive substance dependence with psychoactive substance-induced mood disorder; E78.5 Hyperlipidemia, unspecified; I10 Essential (primary) hypertension; K21.9 Gastro-esophageal reflux disease without esophagitis; E11.9 Type 2 diabetes mellitus without complications; R79.89 Other specified abnormal findings of blood chemistry; Z88.5 Allergy status to narcotic agent
CPT/HCPCS: 36415; 80053; 82140; 82962; 85027; 86780; 87635; 87811